=== PATIENT | female | born 1985 | race Caucasian/White ===

== ENCOUNTER 2016-08-19 23:21 | Emergency (ER) | payer OTHER | END 2016-08-20 01:38 | disposition home or self-care (01) | LOC: ER 23:21 | DX: G43.909 Migraine, unspecified, not intractable, without status migrainosus (principal); F17.210 Nicotine dependence, cigarettes, uncomplicated; Z79.899 Other long term (current) drug therapy | CPT/HCPCS: 96372; 99282-25; J2930 ==

== ENCOUNTER 2016-08-22 21:04 | Emergency (ER) | payer OTHER | END 2016-08-22 23:08 | disposition home or self-care (01) | LOC: ER 21:04 | DX: R51 Headache (principal); F41.9 Anxiety disorder, unspecified; M06.9 Rheumatoid arthritis, unspecified; F17.210 Nicotine dependence, cigarettes, uncomplicated; Z79.899 Other long term (current) drug therapy | CPT/HCPCS: 70450; 96372; 99283-25 ==